=== PATIENT | male | born 1995 | race Asian ===

== ENCOUNTER 2019-09-10 02:51 | Emergency (ER) | payer OTHER ==
[~2019-09-10] VITALS: Ht 165.1 cm; Wt 70.3 kg
--- NOTE | 2019-09-10 02:57 | NUR ---
PT BROUGHT IN BY 100 VIA [facility] AOX4, ABLE TO SPEAK CLEAR AND COMPLETE SENTENCES C/O RECENT EXPOSURE TO PEANUTS AROUND 12MIDNIGHT(APPROX) +KNOWN PEANUT ALLERGEY PT USED 3 DOSES OF EPINEPHRINE IM TO L THIGH. DENIES SOB/DENIES NVD/FEVERS/CHILLS/ JOINT PAIN DENIES RECENT TRAVELS MD AT BEDSIDE FOR HX AND PHYSICAL
--- NOTE | 2019-09-10 03:03 | NUR ---
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
--- NOTE | 2019-09-10 03:16 | NUR ---
PT STATES "NURSE, I FEEL LIKE I AM REBOUNDING. I FEEL THAT THE HIVES ARE RETURNING ON THE LEFT LEG" NO WHEEZING, DESCRIBES TONGUE IS GETTING THICKER, AND DESCRIBES IT IS GETTING HARDER TO BREATHE O2SAT AT 99-100% HR AT 94BPM ERMD AWARE
--- NOTE | 2019-09-10 04:07 | NUR ---
ERMD AT BEDSIDE FOR UPDATE PT WAS ASLEEP BUT EASILY ROUSED NAD NO SOB NO WHEEZING CLEAR BREATH SOUNDS ON BOTH LUNG KIMBLE [id number] 99% HR 76BPM
[2019-09-10 04:16] VITALS: BP 148/89
--- NOTE | 2019-09-10 04:16 | NUR ---
Patient discharged to home in stable conditon. Written and verbal after care instructions given. Patient verbalizes understanding of instructions. ALL BELONGINGS W/ PT AMBULATORY W/ STABLE GAIT
== END 2019-09-10 04:17 | disposition home or self-care (01) ==
LOC: ER 02:53
DX: T78.1XXA Other adverse food reactions, not elsewhere classified, initial encounter (principal); Z91.010 Allergy to peanuts; Z88.2 Allergy status to sulfonamides; Z88.8 Allergy status to other drugs, medicaments and biological substances; X58.XXXA Exposure to other specified factors, initial encounter
CPT/HCPCS: A4663